=== PATIENT | male | born 2000 | race Hispanic/Latino ===

== ENCOUNTER 2023-02-12 10:44 | Emergency (ER) | payer OTHER, MEDICAID ==
[2023-02-12] MEDS ORDERED: Lidocaine 1% (PF) 30 ML VIAL ONE (11:28)
[2023-02-12] MEDS ORDERED: Bacitracin 1 PK ONE (12:15)
== END 2023-02-12 12:19 | disposition home or self-care (01) ==
LOC: CSHERS 10:44
DX: S81.012A Laceration without foreign body, left knee, initial encounter (principal); S70.312A Abrasion, left thigh, initial encounter; S90.512A Abrasion, left ankle, initial encounter; V89.2XXA Person injured in unspecified motor-vehicle accident, traffic, initial encounter
CPT/HCPCS: 12001; J2001